=== PATIENT | male | born 1985 | race Caucasian/White ===

== ENCOUNTER → 2016-06-09 | Day surgery (SDC) | payer OTHER ==
[~2016-06-09] MED LIST: ABREVA TOP; AMOXICILLIN500 M1 PO; ATIVAN PO; AUGMENTIN PEG; BACLOFEN10 MG PEG; BACLOFEN10 MG PO; BACLOFEN20 MG GT; BACTRIM DS TABL1 TA1 PO; CIPRO PO; CLEOCIN PO; COGENTIN1 M1 DOB; DIFLUCAN100 MG PO; HYDROCHLOROTH12.5 MG PO; HYDROCODONE-APA1 T51 PO; KEPPRA250 MG; KEPPRA250 MG PO; KEPPRA500 M2 PEG; KEPPRA500 MG GT; KEPPRA750 MG PO; LISINOPRIL PO; LOPRESSOR; METOPROLOL TART25 MG PO; MOXIFLOXACIN H400 MG PO; NEURONTIN GT; NEURONTIN PEG; NEURONTIN PO; NYSTATIN-TRIAMC15 G1 TP; NYSTATIN15 GM OINT EXT; ONDANSETRON4 MG/2 M1 PO; PHENOBARB PEG; PHENOBARB PO; PHENOBARBITAL GT; PHENOBARBITAL60 M1 GT; REGLAN10 MG PEG; TOPROL XL GT; TOPROL XL PEG; TOPROL XL PO; VASOLEX OINTMEN30 GM TP; ZOFRAN PEG; ZONEGRAN100 MG PO
--- NOTE | ~2016-06-09 | OR ---
Unit #: [id number] #: [id number] Patient: REGI ABBOTT [id number] [address] [place], [place] [address] [id number] O MR#: [id number] NAME: REGI ABBOTT ROOM: Date of Procedure: 06/09/2016 Admission Date: 06/09/2016 Surgeon: Dewayne Harrison M.D. : 1985 Attending Physician: Dewayne Harrison M.D. Primary Care Physician: David Cornejo M.D. OPERATIVE REPORT PREOPERATIVE DIAGNOSES The patient has cerebral palsy and indwelling percutaneous endoscopic gastrostomy tube, which is malfunctioning and totally clogged off and falling apart. The purpose of examination is removal of the old tube and replaced with a new 24-Bruneian gastrostomy tube. PROCEDURE PERFORMED Endoscopically removal of the old percutaneous endoscopic gastrostomy tube and placement of a new 24-Bruneian percutaneous endoscopic gastrostomy tube through the matured gastrocutaneous fistula. RECOMMENDATIONS Use the new tube for feeding or medications as needed. The patient will be discharged home after the procedure. SEDATION USED MAC. DESCRIPTION OF PROCEDURE Following detailed explanation of potential risks and complications of an upper endoscopy, namely perforation, bleeding, and complications related to sedation, the patient was brought to GI lab and laid in the supine position. Sedation using MAC was given. Lubricated tip of the Olympus video upper endoscope was passed through bite block into the proximal esophagus under direct vision. The entire esophageal mucosa was examined and appeared normal. Z-line was nicely demarcated, there being no esophagitis or hiatus hernia. The scope was then advanced into the gastric cavity and the latter was insufflated. Mucosa of the fundus, body, and antrum was examined and appeared unremarkable. Pylorus was intubated with visualization of the normal duodenal bulb and second and third part of the duodenum. Upon withdrawal and retroflexion, incisura, cardia, and greater curve examined and no additional findings noted. Attention was focused on the inner mushroom of the PEG tube. This was grasped using a polypectomy snare and the tube was cut with a pair of scissors just outside the skin. The mushroom was then delivered outside endoscopically. Through the matured gastrocutaneous fistula, a new 24-Bruneian PEG tube was placed and the securing device was applied. Relook endoscopy confirmed good position of the tube. The scope was then withdrawn. The patient returned to the recovery area. He tolerated the procedure without any postprocedure complications. Unit #: [id number] #: [id number] Patient: REGI ABBOTT Dictated by... Eliane Bui/anibal TD: 06/10/2016 00:23 JOB #: [id number] OPERATIVE REPORT X Dewayne Harrison MD X PROCEDURE OPERATIVE NOTE
== END | disposition home or self-care (01) ==
LOC: COPS 05:48
DX: K94.23 Gastrostomy malfunction (principal); K31.6 Fistula of stomach and duodenum; G80.9 Cerebral palsy, unspecified; K59.00 Constipation, unspecified; Z88.1 Allergy status to other antibiotic agents; Z87.01 Personal history of pneumonia (recurrent); Z88.8 Allergy status to other drugs, medicaments and biological substances; Z79.899 Other long term (current) drug therapy; Z98.890 Other specified postprocedural states

== ENCOUNTER 2016-09-13 15:14 | Emergency (ER) | payer OTHER ==
--- NOTE | ~2016-09-13 | CR7 ---
[facility] A Service of [facility] RADIOLOGY TEXT RESULTS PATIENT: REGI ABBOTT LOCATION: SED : 85 UNIT #: [id number] AGE: [address]: Elaina Garibay MD SEX: M ORDER DR: [id number] [address] [address] [id number] E MR#: [id number] Acc #: [id number] NAME: REGI ABBOTT : 1985 SEX: M STUDY DATE/TIME: 09/13/2016 15:47 UNIT: SED ROOM: STUDY DESCRIPTION: CR Abdomen Single AP View Attending Physician: Elaina Garibay M.D. Ordering Physician: Elaina Garibay M.D. Primary Care Physician: David Cornejo M.D. MEDICAL IMAGING REPORT This report is preliminary unless electronic signature is present. EXAM Frontal abdomen, 09/13/2016. INDICATIONS 31-year-old male presenting for evaluation of a foreign body. Pain in the lower abdomen. Possible foreign body in the rectum. Possible cap in the rectum from an enema. Cerebral palsy patient. Nonverbal for the past week. TECHNIQUE Frontal abdomen was performed. COMPARISON 08/14/2014 FINDINGS A retained opaque foreign body is not clearly demonstrated in the field of view. Postop changes of thoracolumbar fusion again noted. Degenerative change of both hips related to hip dysplasia bilaterally. No acute fracture. Bowel gas pattern nonobstructed, but nonspecific, and may reflect a generalized ileus. Moderate stool burden in the colon. IMPRESSION No retained opaque foreign body identified in the field of view. Dictated by... Michael Garrido M.D. THIS IS AN ELECTRONICALLY VERIFIED REPORT Michael Garrido M.D. at 09/14/2016 2:16 PM SHAYNE/reuben [facility] A Service of [facility] RADIOLOGY TEXT RESULTS PATIENT: REGI ABBOTT LOCATION: SED : 85 UNIT #: [id number] AGE: [address]: Elaina Garibay MD SEX: M ORDER DR: TD: 09/13/2016 19:16 JOB #: [id number] MEDICAL IMAGING REPORT Page 1 of 1
== END 2016-09-13 16:30 | disposition home or self-care (01) ==
LOC: SED 15:14
DX: Z03.89 Encounter for observation for other suspected diseases and conditions ruled out (principal); I10 Essential (primary) hypertension
CPT/HCPCS: 74000; 99282; 99283